=== PATIENT | female | born 1985 | race Hispanic/Latino ===

== ENCOUNTER 2017-07-24 11:36 | Emergency (ER) | payer SELFPAY ==
[2017-07-24 12:15] VITALS: BP 113/78
== END 2017-07-24 16:51 | disposition left against medical advice (07) ==
LOC: ED 11:36
DX: R10.9 Unspecified abdominal pain (principal); Z53.21 Procedure and treatment not carried out due to patient leaving prior to being seen by health care provider

== ENCOUNTER 2017-07-26 09:44 | Emergency (ER) | payer MEDICAID, OTHER ==
[2017-07-26 09:51] VITALS: BP 132/77
[2017-07-26 11:16] LABS: Bacteria,Urine 1+ /HPF (Negative); Bilirubin,Urine NEG (Negative); Blood,Urine SM (Negative); Color,Urine Yellow (Yellow); Urobilinogen,Urine < 2.0 mg/dL (<2.0)
[2017-07-26 11:19] LABS: WBC,Urine > 182.0 /HPF (0.0-6.0)
--- NOTE | 2017-07-26 11:22 | Emergency Department Report ---
HPI - General Chief Complaint: Abdominal Pain Time Seen by Provider: 07/26/17 10:43 - [facility] HPI: Patient is a 32-year-old female with no prior medical history who presents to ED complaining of urinary urgency and bilateral flank pain. Patient states this is been intermittently going on since last month. Patient says she just has not been able to see care. Patient states symptoms are worse past 2 days so she came in. She denies fevers/chills/nausea/vomiting/abdominal pain/chest pain/shortness of breath/vaginal bleeding/vaginal discharge ED Past Medical Hx - Past Medical History Previous Medical History?: No - Surgical History Additional Surgical History: TUBAL - Social History Smoking Status: Never Smoker Substance Use Type: None - Medications Home Medications: Home Medications Medication Instructions Recorded Confirmed Last Taken Type Phenazopyridine [Pyridium] 100 mg PO BID #6 tab 07/26/17 Unknown Rx Sulfamethoxazole/Trimethoprim 1 each PO BID #14 tablet 07/26/17 Unknown Rx [Bactrim DS TAB] ED Review of Systems ROS: Stated complaint: BACK PAIN Other details as noted in HPI Constitutional: denies: chills, fever Eyes: denies: eye pain, eye discharge, vision change ENT: denies: ear pain, throat pain Respiratory: denies: cough, shortness of breath, wheezing Cardiovascular: denies: chest pain, palpitations Endocrine: no symptoms reported Gastrointestinal: denies: abdominal pain, nausea, diarrhea Genitourinary: denies: urgency, dysuria, discharge Musculoskeletal: denies: back pain, joint swelling, arthralgia Skin: denies: rash, lesions Neurological: denies: headache, weakness, paresthesias Psychiatric: denies: anxiety, depression Hematological/Lymphatic: denies: easy bleeding, easy bruising Physical Exam - Physical Exam Vital Signs: Vital Signs 07/26/17 09:48 Temperature 97.2 F L Pulse Rate 89 Respiratory 18 Rate Blood Pressure 132/77 O2 Sat by Pulse 97 Oximetry Physical Exam: GENERAL: Alert and oriented x3, no apparent distress, Normal Gait, atraumatic. HEAD: Head is normocephalic and a-traumatic. NECK: Supple. Non edematous, No carotid bruits. No lymphadenopathy or thyromegaly. No C-spine tenderness LUNGS: Symetrical with respiration, No wheezing, no rales or crackles, CTAB. HEART: S1, S2 present, regular rate and rhythm without murmur, no rubs, no gallops. Non tender to palpation ABDOMEN: No organomegaly was noted,Positive bowel sounds, soft, and non- distended. . Nontender to palpation on all Quadrants, NO CVA tenderness. BACK: Full range of motion, no spinal tenderness, nontender to palpation. NEUROLOGIC: The patient is cooperative with no focal neurologic deficits. SKIN: Warm and dry, No lesions, No ulceration or induration present. ED Course Vital Signs 07/26/17 09:48 Temperature 97.2 F L Pulse Rate 89 Respiratory 18 Rate Blood Pressure 132/77 O2 Sat by Pulse 97 Oximetry ED Medical Decision Making - Medical Decision Making 32-year-old female presents to urinary tract infection ED course: Urinalysis and urine test ordered Urinalysis positive for bacteria, elevated white count. Urine test negative I discussed result findings with the patient. I discussed the patient to make sure she is drinking increased water and can drink some cranberry juice as well to help prevent further UTIs I discussed she should be on antibiotics for her urinary tract infection Vital signs are normal patient is in no acute distres. I discussed the patient to follow-up with her primary care physician. Critical care attestation.: If time is entered above; I have spent that time in minutes in the direct care of this critically ill patient, excluding procedure time. ED Disposition Clinical Impression: UTI (urinary tract infection) Qualifiers: Urinary tract infection type: acute cystitis Hematuria presence: without hematuria Qualified Code(s): N30.00 - Acute cystitis without hematuria Disposition: TO HOME OR SELFCARE Is pt being admited?: No Does the pt Need Aspirin: No Condition: Stable Instructions: Abdominal Pain (ED), Dysuria (ED), Urinary Tract Infection in Women (ED) Additional Instructions: Make sure to follow up with the primary care physician as discussed. Take all your medications as you've been prescribed. If you have any worsening symptoms or develop new symptoms please return to ED immediately. Prescriptions: Phenazopyridine [Pyridium] 100 mg PO BID #6 tab Sulfamethoxazole/Trimethoprim [Bactrim DS TAB] 1 each PO BID #14 tablet Referrals: PRIMARY CARE, [Primary Care Provider] - 3-5 Days [facility] [Outside] - 3-5 Days [facility] [Outside] - 3-5 Days Forms: Work/School Release Form(ED) Time of Disposition: 11:29
== END 2017-07-26 11:40 | disposition home or self-care (01) ==
LOC: ED 09:44
DX: N30.00 Acute cystitis without hematuria (principal)
CPT/HCPCS: 36415; 81001; 84703; 99283